=== PATIENT | male | born 1990 | race Caucasian/White ===

== ENCOUNTER 2024-05-02 04:46 | Emergency (ER) | payer SELFPAY ==
[2024-05-02 04:46] VITALS: BMI 23.0
[2024-05-02 05:04] VITALS: BP 150/107; PULSE 89; RESP 18; TEMP 37.1; O2SAT 97
--- NOTE | 2024-05-02 05:06 | EDNOTE_ITS ---
ED Dental RME/HPI General Chief complaint: Dental/Oral/Throat Stated complaint: RT UPPER TOOTHACHE Time Seen by Provider: 05/02/24 04:48 Arrival date/time: 05/02/24 04:46 33 year old male present to emergency room with c/o of dental pain for 2 days. Location: dental SEVERITY: Symptoms are described as being severe with limitations on activities of daily living CONTEXT: The patient is unable to identify any inciting events. DURATION/TIMING: The symptoms started approximately 2 days ago and have been co nstant since and have been progressive getting worse. ASSOCIATED SYMPTOMS: The patient is unable to identify any other associated symptoms. MODIFYING FACTORS: The patient is unable to identify any alleviating or aggravating symptoms. PERTINENT ROS: no fevers, no cough, no chest pain/shortness of breath no nausea,vomiting, diarrhea, no dizziness/headache no rash dsyuria,urgency,frequency REVIEW OF SYSTEMS: See History of Present Illness - with the exception of those mentioned in the history of present illness, all other systems reviewed and reported as negative GENERAL: In general the patient is awake, interactive, in an emergency department gurney. HEAD/EYES/EARS/NOSE/THROAT:+ right upper teeth/partial facture teeth. no abscess, no discharge no airway obstruction normo-cephalic, atraumatic, mucus membranes are moist, anicteric, palpebral conjunctiva is pink, trachea is midline. EXTREMITY: no tenderness to palpation over the long bones or large joints of the bilateral upper and lower extremities, no joint swelling, no joint erythema, no signs of trauma, no unilateral leg swelling and no peripheral edema. SKIN: warm, dry, well-perfused, no jaundice, no rash, no telangiectasias or petechia. PSYCH: calm, cooperative, no evidence of psychosis or agitation Related Data Previous Rx's ?Medication ?Instructions ?Recorded ibuprofen 800 mg tablet 800 mg PO TID PRN pain #30 tabs 12/19/19 amoxicillin 875 mg-potassium 1 tab PO Q12H 7 days #14 tabs 05/02/24 clavulanate 125 mg tablet Allergies Allergy/AdvReac Type Severity Reaction Status Date / Time adhesive tape Allergy Verified 04/21/23 09:03 Course Course Course Narrative: Presentation consistent with dental pain of tooth # right upper teeth for 2 days No evidence of Devang's Angina, large abscess pocket, requirement for emergent extraction, or other complications. Provided prescription for augmentin, first dose given, dental block improved pain . Patient informed to follow up with local dentist. Return to ER if pain uncontrolled, abscess that drains purulent fluid, high fevers, trouble swallowing, or other concerns.? Plan:? Discharge from ED? F/U with local dentist Informed to return to ED if has new or worsening symptoms. Expressed understanding of and agreement with plan and all questions answered. Quality Measures none Orders Category Date Time Status Acetaminophen Tab [Tylenol ES Tab] Med 05/02/24 05:05 Discontinued 1,000 mg PO X1 ONE Amoxicillin/Pot Clav 875 [Augmentin 875] Med 05/02/24 05:05 Discontinued 1 tab PO X1 ONE Reevaluation(s) Reevaluation #1: pain improved Vital Signs Vital signs: Vital Signs Temperature 98.7 F 05/02/24 05:04 Pulse Rate 89 05/02/24 05:04 Respiratory Rate 18 05/02/24 05:04 Blood Pressure 150/107 H 05/02/24 05:04 Pulse Oximetry (%) 97 05/02/24 05:04 Oxygen Delivery Method Room Air 05/02/24 05:04 Dental / Oral MDM Narrative MDM Narrative:: Consent for operation or procedure: Implied due to patient condition - need for invasive monitoring Lidocaine 3 ml The distribution of the inferior alveolar nerve was identified.? lidocaine 1 % was injected into that region.? A short time later adequate analgesia was obtained. Estimated Blood Loss: minimal? Complications:? The patient tolerated the procedure well without complications. Patient data External records reviewed:: None Clinical information provided by:: patient Social determinants that could affect healthcare access:: none Patient has the following chronic illnesses:: none How is presenting disease/condition affected by chronic disease/condition?: no chronic disease Evaluation data The following diagnostics were reviewed and interpreted by me:: other (specify) Lab and/or radiology exams considered but not ordered:: none Interpretation Summary: none Medications / Prescriptions Medications or Prescriptions considered but not ordered:: none Medication administrations:: Medication Administration History Discontinued Medications Acetaminophen (Acetaminophen 500 Mg Tablet) 1,000 mg PO X1 ONE Stop: 05/02/24 05:06 Amoxicillin/Clavulanate Potassium (Amoxicillin/Pot Clav 875 Tablet) 1 tab PO X1 ONE Stop: 05/02/24 05:06 as stated above Consultations Consultation(s) initiated? (list below): No Diagnosis Dental Differential Diagnosis: gingival abscess, dental caries, toothache, dental abscess and fracture of tooth Most likely diagnosis given after review of the tests above:: dental pain Admission Indicated Admission indicated?: not indicated Admission Request Was there a request for admission?: No Disposition Plan Disposition Plan: Discharge Discharge Attestation Discharge Attestation: The patient and all family members were given an opportunity to ask questions and understood the discharge instructions. Discharge instructions specifically effects, indications for sooner follow up or return to the emergency department, and the expected course of current diagnosis. Patient condition: Stable Discharge Plan Plan Patient Disposition: HOME (Self Care) Health Concerns: Follow up with dentist as directed Return to ED if symptoms worsen Prescriptions/Referrals Prescriptions/Med Rec: New amoxicillin-pot clavulanate 875-125 mg tablet 1 tab PO Q12H 7 Days Qty: 14 0RF No Action ibuprofen 800 mg tablet 800 mg PO TID PRN (Reason: pain) Qty: 30 0RF Referrals: Temporary Provider,ED [Primary Care Provider] - In 1 week Problem List Clinical Impression: Toothache Patient/Caregiver Discharge Instructions Education Materials: ED Dental Pain Print Language: [place] Island[place] Stand Alone Forms: Jenifer Award Info., Patient Portal Info Letter
[2024-05-02] MEDS: AMOXICILLIN/POT CLAV 875 TABLET 1 TAB PO (05:17)
[2024-05-02] MEDS: ACETAMINOPHEN 500 MG TABLET 1000 MG PO (05:17)
[2024-05-02 05:26] VITALS: BP 142/90; PULSE 76; RESP 16; TEMP 36.8; O2SAT 98
== END 2024-05-02 05:27 | disposition home or self-care (01) ==
LOC: SERX 05:24
PROVIDERS: Emergency Provider Emergency Medicine; PCP Family Medicine
DX: K08.89 Other specified disorders of teeth and supporting structures (principal)
CPT/HCPCS: 99282; A9270

== ENCOUNTER 2024-07-10 16:28 | Emergency (ER) | payer BC, SELFPAY ==
--- NOTE | 2024-07-10 16:34 | XR_ITS ---
EXAMINATION: XR wrist comp LT min 3V, XR hand comp LT min 3V ORDERING PROVIDER: Bernardo SANDOVAL), EMERGENCY DISPATCH OPERATOR HISTORY: trauma TECHNIQUE: 6 radiographs of the left hand and wrist were obtained. Limited evaluation of the hand due to persistent flexion of the fingers throughout. COMPARISON: None. FINDINGS: BONES: No acute fracture or dislocation. ALIGNMENT: Normal. JOINTS: Normal. BONY MINERALIZATION: Normal. SOFT TISSUES: Mild dorsal hand soft tissue swelling. IMPRESSION: Soft tissue swelling without acute bony findings.
--- NOTE | 2024-07-10 16:34 | XR_ITS ---
EXAMINATION: XR wrist comp LT min 3V, XR hand comp LT min 3V ORDERING PROVIDER: Bernardo SANDOVAL), SEWER TAPPER HISTORY: trauma TECHNIQUE: 6 radiographs of the left hand and wrist were obtained. Limited evaluation of the hand due to persistent flexion of the fingers throughout. COMPARISON: None. FINDINGS: BONES: No acute fracture or dislocation. ALIGNMENT: Normal. JOINTS: Normal. BONY MINERALIZATION: Normal. SOFT TISSUES: Mild dorsal hand soft tissue swelling. IMPRESSION: Soft tissue swelling without acute bony findings.
[2024-07-10 17:14] VITALS: BP 136/86; PULSE 77; RESP 16; TEMP 36.9; O2SAT 99; BMI 22.8
--- NOTE | 2024-07-10 17:21 | XR_ITS ---
EXAMINATION: CT hand LT wo con ORDERING PROVIDER: Bernardo SANDOVAL), INFUSION NURSE HISTORY: trauma TECHNIQUE: Volumetric helical CT images of the left hand were obtained with 2-D and 3-D reformats generated on a separate workstation and submitted for interpretation. Institutional dose reduction protocols were utilized. RADIATION DOSE: DLP 89.5 mGy-cm COMPARISON: Same day hand and wrist radiographs. FINDINGS: No acute fracture or dislocation. Joint spaces preserved. 3 mm bone island in the triquetrum. Mild soft tissue swelling overlying the metacarpophalangeal joints of the index, long, ring, and small fingers. IMPRESSION: Soft tissue swelling without acute bony findings.
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
[2024-07-10 19:51] VITALS: BP 145/93; PULSE 62; RESP 16; TEMP 36.8; O2SAT 100
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
[2024-07-11 00:16] VITALS: RESP 18
== END 2024-07-11 00:16 | disposition home or self-care (01) ==
PROVIDERS: Emergency Provider Emergency Medicine
DX: S60.222A Contusion of left hand, initial encounter (principal); Y04.0XXA Assault by unarmed brawl or fight, initial encounter
CPT/HCPCS: 29126; 73110; 73130; 73200; 99284

== ENCOUNTER → 2024-09-02 | Outpatient (CLI) | payer BC, SELFPAY ==
--- NOTE | 2024-09-02 12:37 | XR_ITS ---
Examination: Knee, right , 3 views Technique: Knee AP, lateral, oblique 3 views Date and time of exam: September 02, 2024 1325 hours INDICATIONS: Injury to the knee one week ago, knee pain. FINDINGS: No fracture or dislocation. Small knee effusion IMPRESSION: No fracture or dislocation
== END | disposition home or self-care (01) ==
LOC: CDIM 12:25
PROVIDERS: PCP Family Medicine; Referring Provider Nurse Practitioner; Visit Provider Nurse Practitioner
DX: M25.561 Pain in right knee (principal); S89.91XS Unspecified injury of right lower leg, sequela; X58.XXXS Exposure to other specified factors, sequela
CPT/HCPCS: 73562

== ENCOUNTER → 2024-09-07 | Outpatient (CLI) | payer BC, SELFPAY ==
--- NOTE | 2024-09-07 10:36 | XR_ITS ---
Examination: PA lateral chest 2 views TECHNIQUE: Upright PA lateral chest 2 views Exam date and time: September 07, 2024 1046 hours INDICATIONS: Chest pain beginning 2 days ago. FINDINGS: Normal heart size. Lungs are clear. The osseous structures are intact IMPRESSION: No active disease
== END | disposition home or self-care (01) ==
PROVIDERS: PCP Nurse Practitioner; Referring Provider Nurse Practitioner; Visit Provider Nurse Practitioner
DX: R07.89 Other chest pain (principal)
CPT/HCPCS: 71046